=== PATIENT | female | born 1950 | race Caucasian/White ===

== ENCOUNTER 2022-12-16 02:08 | Inpatient (IN) | payer OTHER ==
[~2022-12-16] VITALS: Ht 167.6 cm; Wt 74.6 kg
[2022-12-16 04:40] LABS: BUN/Creatinine Ratio 17.4 (10.0-20.0); Calcium 9.6 mg/dL (8.5-10.1); Potassium 3.2 mmol/L (3.5-5.1)
[2022-12-16 04:43] LABS: Bilirubin, Total 0.6 mg/dL (0.2-1.0); Total Protein 7.4 g/dL (6.4-8.2)
[2022-12-16 04:49] LABS: Basophils # (auto) 0 10 ^3/uL (0-0.2); Basophils % (auto) 0.2 % (0.0-2.0); Eosinophils # (auto) 0.2 10 ^3/uL (0-0.8); Eosinophils % (auto) 1.9 % (0.0-7.0); Hematocrit 37.9 % (36.0-46.0); Hemoglobin 13.2 g/dL (12.2-16.2); Lymphocytes # (auto) 1.5 10 ^3/uL (0.4-5.4); Lymphocytes % (auto) 12.6 % (10.0-50.0); Mean Corpuscular Hemoglobin 31.8 pg (28.0-32.0); Mean Corpuscular Hgb Conc. 34.7 g/dL (32.0-36.0); Mean Corpuscular Volume 91.5 fL (80.0-100.0); Monocytes # (auto) 0.6 10 ^3/uL (0-1.3); Monocytes % (auto) 5.4 % (0.0-12.0); Neutrophils # (auto) 9.4 10 ^3/uL (1.6-8.6); Neutrophils % (auto) 79.9 % (37.0-80.0); Nucleated Red Blood Cells % 0.1 %; Red Blood Cells 4.15 10^6/uL (4.0-5.20); Red Cell Distribution Width 13.8 % (11.8-14.3); White Blood Cell 11.7 10^3/uL (4.4-10.8)
[2022-12-16] MEDS ORDERED: IOHEXOL 350 MG/ML 100ML IJ ONE (06:49)
[2022-12-16 07:30] LABS: INR 0.96 (0.9-1.15); Partial Thromboplastin Time 23.4 sec (24.6-33.4)
[2022-12-16] MEDS ORDERED: POTASSIUM EFFERVESENT TAB 25 MEQ PO ONE (08:30)
[2022-12-16] MEDS ORDERED: FUROSEMIDE 40 MG/4 ML VIAL IV ONE (08:30)
[2022-12-16] MEDS ORDERED: MECLIZINE HCL 25 MG TAB PO ONE (08:30)
[2022-12-16 08:55] LABS: Urine Bacteria NONE SEEN /hpf (None Seen); Urine Blood Negative /uL (Negative); Urine Hyaline Cast MANY /lpf (0 - 2); Urine Mucus FEW (None Seen); Urine Specific Gravity 1.024 (1.001-1.035); Urine Sperm PRESENT /hpf (None Seen); Urine WBC 1 /hpf (0 - 5)
[2022-12-16] MEDS ORDERED: ONDANSETRON HCL 4 MG/2 ML VIAL IV ONE (09:00)
[2022-12-16] MEDS ORDERED: ONDANSETRON HCL 4 MG/2 ML VIAL IV PRN (11:45)
[2022-12-16] MEDS ORDERED: ASPirin 81 mg TAB PO ONE (11:45)
[2022-12-16] MEDS ORDERED: MORPHINE SULFATE INJ 2 MG/ml SYRG IV PRN (11:45)
[2022-12-16] MEDS ORDERED: ACETAMINOPHEN 325 MG TAB PO PRN (11:45)
[2022-12-16] MEDS ORDERED: cefTRIAXone 1GM/50ML D5W 50 ML IV ONE (11:45)
[2022-12-16] MEDS ORDERED: NITROGLYCERIN 0.4 MG SL TAB SL PRN (11:45)
[2022-12-16] MEDS: GABAPENTIN 300 MG CAP PO SCH ×2 (13:44→22:06)
[2022-12-16] MEDS: HYDROcodone-ACET 5/325MG TAB PO PRN (21:23)
[2022-12-16] MEDS: ATORVASTATIN 20 MG TAB PO SCH (22:06)
[2022-12-16 22:48] LABS: Cholesterol 195 mg/dL (< 200)
[2022-12-16 22:51] LABS: HDL Cholesterol 67 mg/dL (40-59); LDL Cholesterol 117 mg/dL (< 100); Triglycerides 127 mg/dL (< 150)
[2022-12-17] MEDS: GABAPENTIN 300 MG CAP PO SCH ×3 (06:07→23:19)
[2022-12-17 07:27] LABS: Potassium 3.5 mmol/L (3.5-5.1)
[2022-12-17 07:34] LABS: Albumin 3.5 g/dL (3.4-5.0); BUN/Creatinine Ratio 23.8 (10.0-20.0); Basophils # (auto) 0 10 ^3/uL (0-0.2); Basophils % (auto) 0.5 % (0.0-2.0); Bilirubin, Total 0.8 mg/dL (0.2-1.0); Eosinophils # (auto) 0.4 10 ^3/uL (0-0.8); Eosinophils % (auto) 5.5 % (0.0-7.0); Hemoglobin 12.6 g/dL (12.2-16.2); Lymphocytes # (auto) 1.8 10 ^3/uL (0.4-5.4); Lymphocytes % (auto) 27.2 % (10.0-50.0); Mean Corpuscular Hemoglobin 31.5 pg (28.0-32.0); Mean Corpuscular Hgb Conc. 34.1 g/dL (32.0-36.0); Mean Corpuscular Volume 92.3 fL (80.0-100.0); Monocytes # (auto) 0.5 10 ^3/uL (0-1.3); Monocytes % (auto) 7.2 % (0.0-12.0); Neutrophils # (auto) 3.9 10 ^3/uL (1.6-8.6); Neutrophils % (auto) 59.6 % (37.0-80.0); Nucleated Red Blood Cells % 0.1 %; Red Cell Distribution Width 13.8 % (11.8-14.3); Total Protein 6.7 g/dL (6.4-8.2); White Blood Cell 6.6 10^3/uL (4.4-10.8)
[2022-12-17] MEDS: ENOXAPARIN SOD 40 MG/0.4 ML SYRINGE SC SCH (09:21)
[2022-12-17] MEDS: LISINOPRIL 20 MG TAB PO SCH (09:22)
[2022-12-17] MEDS: AZITHROMYCIN 500MG/ 250ML 250 ML IV SCH (09:22)
[2022-12-17] MEDS ORDERED: LISI20TA56 PO (11:35)
[2022-12-17] MEDS ORDERED: GABA-1250 PO (11:35)
[2022-12-17] MEDS ORDERED: ATOR20TA50 PO (11:35)
[2022-12-17] MEDS ORDERED: MECL1TAB31 PO (12:46)
[2022-12-17] MEDS: MECLIZINE HCL 25 MG TAB PO PRN (13:08)
[2022-12-17] MEDS: HYDROcodone-ACET 5/325MG TAB PO PRN (16:16)
[2022-12-17] MEDS: ATORVASTATIN 20 MG TAB PO SCH (23:19)
[2022-12-18] MEDS: HYDROcodone-ACET 5/325MG TAB PO PRN ×3 (02:15→15:36)
[2022-12-18 04:46] VITALS: BP_SYST 153; BP_SYST 161; BP_DIAS 75; BP_DIAS 78; BP_DIAS 80
[2022-12-18] MEDS ORDERED: SERT-206 PO (04:59)
[2022-12-18] MEDS ORDERED: PERCOT PO (04:59)
[2022-12-18] MEDS ORDERED: COEN100C30 PO (04:59)
[2022-12-18] MEDS ORDERED: CHOL20007 OR (04:59)
[2022-12-18] MEDS ORDERED: POTA-228 PO (04:59)
[2022-12-18] MEDS ORDERED: PROP60CA34 PO (04:59)
[2022-12-18 05:00] VITALS: BP 153/75
[2022-12-18] MEDS: GABAPENTIN 300 MG CAP PO SCH ×3 (06:40→21:49)
[2022-12-18 08:00] VITALS: BP 155/77
[2022-12-18 09:00] VITALS: BP 155/77
[2022-12-18] MEDS: AZITHROMYCIN 500MG/ 250ML 250 ML IV SCH (09:34)
[2022-12-18] MEDS: LISINOPRIL 20 MG TAB PO SCH (09:34)
[2022-12-18] MEDS: ENOXAPARIN SOD 40 MG/0.4 ML SYRINGE SC SCH (09:35)
[2022-12-18] MEDS: MECLIZINE HCL 25 MG TAB PO PRN (15:31)
[2022-12-18 17:00] VITALS: BP 143/83
[2022-12-18] MEDS: ATORVASTATIN 20 MG TAB PO SCH (21:49)
[2022-12-18 22:00] VITALS: BP 167/95
[2022-12-18] MEDS ORDERED: LACTULOSE 20Gm/30ML SOLN PO SCH (22:00)
[2022-12-19 05:00] VITALS: BP 144/79
[2022-12-19] MEDS: GABAPENTIN 300 MG CAP PO SCH ×2 (06:01→13:58)
[2022-12-19 08:00] VITALS: BP 151/83
[2022-12-19] MEDS: LISINOPRIL 20 MG TAB PO SCH (08:53)
[2022-12-19] MEDS: ENOXAPARIN SOD 40 MG/0.4 ML SYRINGE SC SCH (08:54)
[2022-12-19] MEDS: HYDROcodone-ACET 5/325MG TAB PO PRN (08:58)
[2022-12-19 09:00] VITALS: BP 151/83
[2022-12-19] MEDS ORDERED: AZITHROMYCIN 250 MG TAB PO SCH (10:00)
[2022-12-19 12:55] VITALS: BP 152/73
[2022-12-19 16:17] VITALS: BP 151/83
[2022-12-19 17:13] VITALS: BP 151/96
== END 2022-12-19 18:15 | disposition home or self-care (01) | DRG 178 ==
LOC: EDBD 02:08 → EDUNIT# 02:08 → ER 02:08 → TELE 11:36 → TELE-WESTW 12-18 03:52
PROVIDERS: ADMIT Nurse Practitioner Family; ATTEND Internal Medicine
DX: J15.6 Pneumonia due to other Gram-negative bacteria (principal); I50.32 Chronic diastolic (congestive) heart failure; L97.919 Non-pressure chronic ulcer of unspecified part of right lower leg with unspecified severity; L97.929 Non-pressure chronic ulcer of unspecified part of left lower leg with unspecified severity; E87.6 Hypokalemia; E78.5 Hyperlipidemia, unspecified; G89.4 Chronic pain syndrome; M19.90 Unspecified osteoarthritis, unspecified site; I73.9 Peripheral vascular disease, unspecified; I87.2 Venous insufficiency (chronic) (peripheral); G62.9 Polyneuropathy, unspecified; I11.0 Hypertensive heart disease with heart failure; F17.200 Nicotine dependence, unspecified, uncomplicated; N18.9 Chronic kidney disease, unspecified; Z82.3 Family history of stroke; Z82.49 Family history of ischemic heart disease and other diseases of the circulatory system
CPT/HCPCS: 36415; 70450; 70480; 70496; 70551; 71045; 80053; 80061; 81001; 82962; 83735; 83880; 84484; 85025; 85610; 85730; 93005; 93306; 95819; 96374; 96375; 97110; 97163; G0378; J0696; J2405